=== PATIENT | male | born 1995 | race Caucasian/White ===

== ENCOUNTER 2019-02-15 19:08 | Emergency (ER) | payer SELFPAY ==
[~2019-02-15] VITALS: Ht 182.9 cm; Wt 98.6 kg
[2019-02-15 19:20] VITALS: Ht 182.9 cm; Wt 98.6 kg
[2019-02-15 20:00] LABS: APPEARANCE CLEAR (CLEAR); BILIRUBIN NEGATIVE (NEGATIVE); COLOR YELLOW (YELLOW); GLUCOSE NEGATIVE (NEGATIVE); KETONE NEGATIVE (NEGATIVE); NITRITE NEGATIVE (NEGATIVE); PROTEIN TRACE mg/dL (NEGATIVE)
[2019-02-15 20:03] LABS: RED CELLS - URINE OCC /hpf (0-5)
[2019-02-15 20:05] LABS: BACTERIA FEW /hpf (NONE SEEN)
[2019-02-15] MEDS ORDERED: SULFAMETHOXAZOL1 TA3 PO (20:10)
[2019-02-15 20:57] VITALS: BP 134/77
[2019-02-19 21:06] LABS: CHLAMYDIA TRACHOMATIS, NAA Positive (Negative)
== END 2019-02-15 20:58 | disposition home or self-care (01) ==
LOC: D.ER 19:08
PROVIDERS: Family Medicine
DX: A64 Unspecified sexually transmitted disease (principal); N39.0 Urinary tract infection, site not specified

== ENCOUNTER 2020-02-06 14:14 | Emergency (ER) | payer SELFPAY ==
[~2020-02-06] VITALS: Ht 182.9 cm; Wt 86.4 kg
[~2020-02-06 14:14] MED LIST: SULFAMETHOXAZOL1 TA3 PO
[2020-02-06 14:34] VITALS: BP 130/81; Ht 182.9 cm; Wt 86.4 kg
== END 2020-02-06 15:00 | disposition home or self-care (01) ==
LOC: D.ER 14:14
DX: T67.9XXA Effect of heat and light, unspecified, initial encounter (principal); R06.4 Hyperventilation; R20.0 Anesthesia of skin

== ENCOUNTER 2020-04-16 16:19 | Emergency (ER) | payer SELFPAY ==
[~2020-04-16] VITALS: Ht 182.9 cm; Wt 93.2 kg
[2020-04-16 16:46] VITALS: Ht 182.9 cm; Wt 93.2 kg
[2020-04-16 18:51] LABS: KETONE NEGATIVE (NEGATIVE); NITRITE NEGATIVE (NEGATIVE)
[2020-04-16 18:52] LABS: BILIRUBIN NEGATIVE (NEGATIVE)
[2020-04-16 18:56] LABS: WHITE CELLS - URINE >50 /HPF (0-1)
[2020-04-16 18:57] LABS: BACTERIA FEW /HPF (NONE SEEN); EPITHELIAL CELLS 0-5 /hpf (0-5)
[2020-04-16 20:24] VITALS: BP 150/75
== END 2020-04-16 20:24 | disposition home or self-care (01) ==
LOC: D.ER 16:19
DX: A64 Unspecified sexually transmitted disease (principal); R36.9 Urethral discharge, unspecified